=== PATIENT | female | born 1955 | race Caucasian/White ===

== ENCOUNTER → 2020-10-01 13:33 | Outpatient (BNVA) | payer OTHER, SELFPAY | PROVIDERS: PCP Internal Medicine Endocrinology, Diabetes & Metabolism; Referring Provider Internal Medicine Endocrinology, Diabetes & Metabolism; Visit Provider Hospitalist | DX: Z76.89 Persons encountering health services in other specified circumstances (principal) ==

== ENCOUNTER → 2021-07-22 13:52 | Outpatient (BNVA) | payer OTHER, SELFPAY | PROVIDERS: PCP Internal Medicine Endocrinology, Diabetes & Metabolism; Visit Provider Hospitalist ==

== ENCOUNTER 2022-06-23 12:40 | Outpatient (REF) | payer OTHER, SELFPAY ==
--- NOTE | 2022-06-23 17:23 | PFT_ITS ---
Forced vital capacity 57%, FEV1 35%, FEV1/FVC ratio is 47, ACI61-69 14%, MVV 38. Post bronchodilator therapy, there is a minimal improvement in FEV1 and [id number]. Total lung capacity 86%. Residual volume 114%. Diffusion capacity 32. CONCLUSION: Very severe obstructive airway disorder. Minimal response to bronchodilator therapy is noted. Clinical correlation recommended. MD RADHA Weaver/MODL / [id number]
== END 2022-06-23 12:41 | disposition home or self-care (01) ==
LOC: HO.RESP 12:40
PROVIDERS: PCP Internal Medicine Endocrinology, Diabetes & Metabolism; Visit Provider Hospitalist
DX: J44.9 Chronic obstructive pulmonary disease, unspecified (principal)
CPT/HCPCS: 94060; 94727; 94729

== ENCOUNTER 2023-08-21 08:53 | Outpatient (AMB) | payer OTHER, SELFPAY ==
--- NOTE | 2023-08-21 09:09 | MHC.OFFVIS ---
Intake Vital Signs 08/21/23 09:10 Height 5 ft Weight 203 lb BMI 39.6 Pulse 65 Pulse Source Pulse Oximeter Pulse Oximetry (%) 92 Oxygen Delivery Method Room Air Comment 2 Liters Oxygen([facility]) Intake Visit Reasons: copd Epoxy Specialist Required: No Allergies No Known Allergies Allergy (Verified 08/21/23 09:11) HPI HPI Comments History of Present Illness Details The patient is a 67-year-old woman with chronic respiratory failure due to COPD. She does have her portable oxygen concentrator that she uses with activity. This is been very effective beneficial. She did desaturate to 88% on RA with activity. Pox 94-95% on the oxygen supplementation 2 L. The patient will continue using the portable oxygen concentrator with activity. She continues to use her respiratory therapy with with good effect. Has not had to use any short-acting beta agonist or need for prednisone. She has not required any hospitalizations. She did have a CT scan of the chest February 2019 demonstrating numerous pulmonary nodules. Largest 7 mm. The patient is scheduled to undergo a repeat CT scan through the lung cancer screening program a [facility]. 04/09/2020 The patient has a telephone visit. Overall the patient is doing well. She is responding very well to the portable oxygen concentrator. This has been very effective beneficial for her. She has been more active and has better portability outside of her home. She she continue with his portable oxygen concentrator. She continues with respiratory medicine. We did talk about his CT scan of the chest demonstrating the 7 mm pulmonary nodule. She is scheduled for CT scan in April of 2020 and does being followed closely at the [facility] lung cancer screening program. Otherwise the patient has been doing well since we last spoke. She finally retired and she did get Cindy to her partner. 10/01/2020 the patient has a telephone visit. Overall she is doing well. Stay very active. She does use her oxygen which very helpful for her. She feels her batteries are not work or lasting as long as before. She will talk to her [employer] company about this. She continues with the current respiratory regimen. She does take part in the lung cancer screening program at [facility]. Her last CT scan was back in April 2020 and she was scheduled to have another CT scan in April 2021. Was the patient is without any other complaints. 07/22/2021 the patient is here for a pulmonary follow-up visit. Overall the patient has been doing well. She continues with a portable oxygen concentrator that she uses most of the time. She is able to take it off when she is resting Ambien room air. The patient continues use her respiratory therapy without any difficulties. In addition to that she did undergo a CT scan of the chest which we personally reviewed in the office. Her pulmonary nodules appear to be stable when compared to last year. However, appears to have some slight increase haziness over the right lower lobe base suggesting some degree of atelectasis. I did recommend the patient start pulmonary rehab it and to perform exercises to expand her lungs specially on the right. She is scheduled to undergo a repeat CT scan in a year's time which is correct. However, if she has any worsening respiratory symptoms or any other concerning symptoms we can always look at that area a little sooner. I did provide her with information for the pulmonary rehab online. 07/23/2022 the patient is here for a pulmonary follow-up visit. Overall the patient has been doing very well. She continues use her oxygen with her portable oxygen concentrator with activity with very good results. She does sleep with oxygen at nighttime. She has a planned trip to [place] this week and she is very excited. The patient has all her medicines. She is going to be very careful and protecting herself from getting sick with any type of virus while she is medication. In the meantime she did undergo pulmonary function studies which we personally reviewed. She does have severe COPD with also evidence of air trapping and a severe diffusion impairment. We did compare her PFTs from [facility] back in 2013 in 2019. It appears that her FEV1 actually improved slightly from 32% to 39% predicted also her diffusing capacity has not changed dramatically. Therefore the patient has been sustaining for the last 10-14 years without any significant worsening of her COPD. The patient is also participating in the lung cancer screening program. Her last CT scan was at [facility] back in June 2022. We did personally reviewed demonstrating small subcentimeter pulmonary nodules. She does have moderate emphysema and some coronary calcifications. 08/18/2022 this is a telehealth visit. The patient came back from [place] and developed COVID-19. She did call quickly after having symptoms and she did start Paxlovid. Now she has completed the course of the 5 days of the antiviral therapy. However, she has been noticing worsening cough productive in nature and shortness of breath. She has been fatigued. Denies any fevers or chills. The patient has been using her respiratory therapy which includes Anoro and also a rescue inhaler. In view of the significant chest congestion and wheezing the patient does need a nebulizer. Now that she has completed the course of packs lobe it we can go ahead and start her on some prednisone. She is already on doxycycline which I believe is a good antibiotic. 08/21/2023 The patient is here for pulmonary follow-up visit. Overall the patient has been doing well. She continues use her oxygen as prescribed. The patient also has been using her respiratory medications. She has not had any exacerbations since we last visit. She continues use her portable oxygen Concentrator with good effect. She had been participating in the lung cancer screening program at [facility]. The patient has plans to travel to the [facility] in the coming months. I did recommend she gets vaccinated for RSV flu and COVID before she travels. otherwise patient is without any other complaints. [facility] Medical History (Updated 08/18/22 @ 23:31 by Rick Orta MD) COVID-19 Atelectasis Pulmonary nodules Chronic respiratory failure COPD (chronic obstructive pulmonary disease) Family History (Updated 10/01/20 @ 21:01 by Rick Orta MD) Father No problems noted. Social History (Updated 08/21/23 @ 09:15 by Lizzette Flynn [place]) Patient Tobacco Use Status: Never used Tobacco Review of Systems Const Denies fatigue, Denies malaise and Denies night sweats ENT Denies change in voice, Denies lip swelling, Denies mouth pain, Reports nasal congestion, Reports nasal discharge, Reports sore throat and Denies tongue swelling Card Denies chest pain, Denies dyspnea and Reports dyspnea on exertion Resp Denies chest congestion, Denies cough, Denies dyspnea, Reports dyspnea on exertion and Denies wheezing GI Denies abdominal pain Musc Denies no additional complaints Neuro Denies Neuro-related abnormal movements Psych Denies no additional complaints Endo Denies fatigue Star/Lymph Denies easy bleeding and Denies lymphadenopathy Aller/Immun Denies lip swelling, Denies tongue swelling and Denies wheezing Physical Exam Vital Signs: Last Vital Signs Pulse 65 08/21/23 09:10 Pulse Ox 92 08/21/23 09:10 Oxygen Delivery Method Room Air 08/21/23 09:10 BMI result Body Mass Index 39.6 Const General: alert Neck Neck: Yes normal visual inspection, Yes full ROM and Yes no lymphadenopathy Chest Chest palpation & inspection: normal inspection of the chest Resp Effort & Inspection: normal respiratory effort and able to speak in complete sentences Auscultation: no rales, no rhonchi, no wheezes and diminished lung sounds Cardio Rate: regular rate Rhythm: regular rhythm Heart sounds: S1 normal heart sound present and S2 normal heart sound present GI Palpation (GI): Soft to palpation and nontender Auscultation: normal bowel sounds Skin General skin exam: no rashes or lesions noted Extrem General: Yes no clubbing, cyanosis or edema Assessment & Plan Assessment & Plan (1) COPD (chronic obstructive pulmonary disease): Code(s): J44.9 - Chronic obstructive pulmonary disease, unspecified Qualifiers: COPD type: COPD with acute exacerbation Qualified Code(s): J44.1 - Chronic obstructive pulmonary disease with (acute) exacerbation (2) Chronic respiratory failure: Code(s): J96.10 - Chronic respiratory failure, unspecified whether with hypoxia or hypercapnia (3) Pulmonary nodules: Code(s): R91.8 - Other nonspecific abnormal finding of lung field Plan continue oxygen with activity continue Anoro SOCORRO as needed Duoneb BID LDCT at [facility] F/U 1 year Medications: Changed From albuterol sulfate 90 mcg/actuation inhalation To albuterol sulfate 90 mcg/actuation 2 inhalations inhalation Q6H 90 days PRN 3 ea 3RF shortness of breath or wheezing From montelukast 10 mg PO DAILY To montelukast 10 mg PO DAILY 90 days 90 tabs 3RF Refilled Anoro Ellipta 62.5-25 mcg/actuation (umeclidinium-vilanterol) 1 inh inhalation DAILY 90 days 3 ea 3RF NS Coding Level of Care Code Est Pt Level 4 (06106) Diagnoses Chronic obstructive pulmonary disease with acute exacerbation J44.1 COPD type: COPD with acute exacerbation Chronic respiratory failure J96.10 Pulmonary nodules R91.8 Time Spent (min) 16
[2023-08-21 09:10] VITALS: PULSE 65; O2SAT 92; BMI 39.6
== END 2023-08-21 09:35 | disposition home or self-care (01) ==
PROVIDERS: PCP Internal Medicine Endocrinology, Diabetes & Metabolism; Visit Provider Hospitalist
DX: J44.1 Chronic obstructive pulmonary disease with (acute) exacerbation (principal); J96.10 Chronic respiratory failure, unspecified whether with hypoxia or hypercapnia; R91.8 Other nonspecific abnormal finding of lung field
CPT/HCPCS: 99214

== ENCOUNTER → 2023-08-21 08:53 | Outpatient (BNVA) | payer OTHER, SELFPAY | PROVIDERS: PCP Internal Medicine Endocrinology, Diabetes & Metabolism; Visit Provider Hospitalist ==

== ENCOUNTER 2024-06-22 09:36 | Outpatient (AMB) | payer OTHER, SELFPAY ==
--- NOTE | 2024-06-22 09:42 | MHC.OFFVIS ---
Vital Signs 06/22/24 09:44 Height 5 ft Weight 205 lb BMI 40.0 Pulse 67 Pulse Source Pulse Oximeter Pulse Oximetry (%) 95 Oxygen Delivery Method Room Air Comment 3 Liters Pulse([facility]) Intake Visit Reasons: COPD Allergies No Known Allergies Allergy (Verified 06/22/24 09:43) HPI Comments Details: The patient is [id number] woman with chronic respiratory failure due to COPD. She does have her portable oxygen concentrator that she uses with activity. This is been very effective beneficial. She did desaturate to 88% on RA with activity. Pox 94-95% on the oxygen supplementation 2 L. The patient will continue using the portable oxygen concentrator with activity. She continues to use her respiratory therapy with with good effect. Has not had to use any short-acting beta agonist or need for prednisone. She has not required any hospitalizations. She did have a CT scan of the chest February 2019 demonstrating numerous pulmonary nodules. Largest 7 mm. The patient is scheduled to undergo a repeat CT scan through the lung cancer screening program a [facility]. 04/09/2020 The patient has a telephone visit. Overall the patient is doing well. She is responding very well to the portable oxygen concentrator. This has been very effective beneficial for her. She has been more active and has better portability outside of her home. She she continue with his portable oxygen concentrator. She continues with respiratory medicine. We did talk about his CT scan of the chest demonstrating the 7 mm pulmonary nodule. She is scheduled for CT scan in April of 2020 and does being followed closely at the [facility] lung cancer screening program. Otherwise the patient has been doing well since we last spoke. She finally retired and she did get Cindy to her partner. 10/01/2020 the patient has a telephone visit. Overall she is doing well. Stay very active. She does use her oxygen which very helpful for her. She feels her batteries are not work or lasting as long as before. She will talk to her [employer] company about this. She continues with the current respiratory regimen. She does take part in the lung cancer screening program at [facility]. Her last CT scan was back in April 2020 and she was scheduled to have another CT scan in April 2021. Was the patient is without any other complaints. 07/22/2021 the patient is here for a pulmonary follow-up visit. Overall the patient has been doing well. She continues with a portable oxygen concentrator that she uses most of the time. She is able to take it off when she is resting Ambien room air. The patient continues use her respiratory therapy without any difficulties. In addition to that she did undergo a CT scan of the chest which we personally reviewed in the office. Her pulmonary nodules appear to be stable when compared to last year. However, appears to have some slight increase haziness over the right lower lobe base suggesting some degree of atelectasis. I did recommend the patient start pulmonary rehab it and to perform exercises to expand her lungs specially on the right. She is scheduled to undergo a repeat CT scan in a year's time which is correct. However, if she has any worsening respiratory symptoms or any other concerning symptoms we can always look at that area a little sooner. I did provide her with information for the pulmonary rehab online. 07/23/2022 the patient is here for a pulmonary follow-up visit. Overall the patient has been doing very well. She continues use her oxygen with her portable oxygen concentrator with activity with very good results. She does sleep with oxygen at nighttime. She has a planned trip to [place] this week and she is very excited. The patient has all her medicines. She is going to be very careful and protecting herself from getting sick with any type of virus while she is medication. In the meantime she did undergo pulmonary function studies which we personally reviewed. She does have severe COPD with also evidence of air trapping and a severe diffusion impairment. We did compare her PFTs from [facility] back in 2013 in 2019. It appears that her FEV1 actually improved slightly from 32% to 39% predicted also her diffusing capacity has not changed dramatically. Therefore the patient has been sustaining for the last 10-14 years without any significant worsening of her COPD. The patient is also participating in the lung cancer screening program. Her last CT scan was at [facility] back in June 2022. We did personally reviewed demonstrating small subcentimeter pulmonary nodules. She does have moderate emphysema and some coronary calcifications. 08/18/2022 this is a telehealth visit. The patient came back from [place] and developed COVID-19. She did call quickly after having symptoms and she did start Paxlovid. Now she has completed the course of the 5 days of the antiviral therapy. However, she has been noticing worsening cough productive in nature and shortness of breath. She has been fatigued. Denies any fevers or chills. The patient has been using her respiratory therapy which includes Anoro and also a rescue inhaler. In view of the significant chest congestion and wheezing the patient does need a nebulizer. Now that she has completed the course of packs lobe it we can go ahead and start her on some prednisone. She is already on doxycycline which I believe is a good antibiotic. 08/21/2023 The patient is here for pulmonary follow-up visit. Overall the patient has been doing well. She continues use her oxygen as prescribed. The patient also has been using her respiratory medications. She has not had any exacerbations since we last visit. She continues use her portable oxygen Concentrator with good effect. She had been participating in the lung cancer screening program at [facility]. The patient has plans to travel to the [facility] in the coming months. I did recommend she gets vaccinated for RSV flu and COVID before she travels. otherwise patient is without any other complaints. 06/22/2024 the patient is here for a pulmonary follow-up visit. She is overall doing well. She continues use the oxygen as prescribed. She also is using her inhalers as prescribed. She has not had any recent flare-ups. She has been working extra hard because she is taking care of her significant other. The patient did have a chest x-ray without any acute disease. We did evaluated. She did have a CT scan back in 2021 as part of the lung cancer screening program at [facility]. She has a 7 mm pulmonary nodule along with other nodules. We are going back to down to 2017 demonstrating the stability the 7 mm pulmonary nodule in the other nodules. Therefore no additional CT scans are warranted serially. If he develops any worsening symptoms I think it reasonable to repeat the CT scan. But at this point will continue to monitor her with x-rays and clinically. Patient will return in 1 year. She is going to get fully vaccinated in the fall and we will see her then. If she has any issues prior to that she will call for an earlier assessment. [facility] Medical History (Updated 06/22/24 @ 09:53 by Rick Orta MD) COVID-19 Atelectasis Pulmonary nodules Chronic respiratory failure COPD (chronic obstructive pulmonary disease) Family History (Updated 10/01/20 @ 21:01 by Rick Orta MD) Father No problems noted. Social History (Updated 08/21/23 @ 09:15 by DARCI Escobar) Patient Tobacco Use Status: Never used Tobacco Review of Systems Const Denies fatigue, Denies malaise and Denies night sweats ENT Denies change in voice, Denies lip swelling, Denies mouth pain, Denies sore throat and Denies tongue swelling Card Denies chest pain, Denies dyspnea and Reports dyspnea on exertion Resp Denies chest congestion, Denies cough, Denies dyspnea, Reports dyspnea on exertion and Denies wheezing GI Denies abdominal pain Musc Denies no additional complaints Neuro Denies Neuro-related abnormal movements Psych Denies no additional complaints Endo Denies fatigue Star/Lymph Denies easy bleeding and Denies lymphadenopathy Aller/Immun Denies lip swelling, Denies tongue swelling and Denies wheezing Physical Exam Vital Signs: Last Vital Signs Pulse 67 06/22/24 09:44 Pulse Ox 95 06/22/24 09:44 Oxygen Delivery Method Room Air 06/22/24 09:44 BMI result Body Mass Index 40.0 Const General: alert HEENT Head: Yes normocephalic Neck Neck: Yes normal visual inspection, Yes full ROM and Yes no lymphadenopathy Chest Chest palpation & inspection: normal inspection of the chest Resp Effort & Inspection: normal respiratory effort and able to speak in complete sentences Auscultation: no rales, no rhonchi, no wheezes and diminished lung sounds Cardio Rate: regular rate Rhythm: regular rhythm Heart sounds: S1 normal heart sound present and S2 normal heart sound present GI Palpation (GI): Soft to palpation and nontender Auscultation: normal bowel sounds Skin General skin exam: no rashes or lesions noted Extrem General: Yes no clubbing, cyanosis or edema Assessment & Plan Assessment & Plan (1) COPD (chronic obstructive pulmonary disease): Code(s): J44.9 - Chronic obstructive pulmonary disease, unspecified Category: Medical Qualifiers: COPD type: COPD with acute exacerbation Qualified Code(s): J44.1 - Chronic obstructive pulmonary disease with (acute) exacerbation (2) Chronic respiratory failure: Code(s): J96.10 - Chronic respiratory failure, unspecified whether with hypoxia or hypercapnia Category: Medical Qualifiers: Respiratory failure complication: hypoxia Qualified Code(s): J96.11 - Chronic respiratory failure with hypoxia (3) Pulmonary nodules: Code(s): R91.8 - Other nonspecific abnormal finding of lung field Category: Medical Plan continue oxygen with activity continue Anoro SOCORRO as needed Duoneb BID LDCT at [facility] completed, 7mm nodule stable for >7 years F/U 1 year Coding Level of Care Code Est Pt Level 4 (27894) Diagnoses Chronic obstructive pulmonary disease with acute exacerbation J44.1 COPD type: COPD with acute exacerbation Chronic respiratory failure with hypoxia J96.11 Respiratory failure complication: hypoxia Pulmonary nodules R91.8 Time Spent (min) 17
[2024-06-22 09:44] VITALS: PULSE 67; O2SAT 95; BMI 40.0
== END 2024-06-22 10:41 | disposition home or self-care (01) ==
PROVIDERS: PCP Internal Medicine Endocrinology, Diabetes & Metabolism; Visit Provider Hospitalist
DX: J44.1 Chronic obstructive pulmonary disease with (acute) exacerbation (principal); J96.11 Chronic respiratory failure with hypoxia; R91.8 Other nonspecific abnormal finding of lung field
CPT/HCPCS: 99214

== ENCOUNTER → 2024-06-22 09:36 | Outpatient (BNVA) | payer OTHER, SELFPAY | PROVIDERS: PCP Internal Medicine Endocrinology, Diabetes & Metabolism; Visit Provider Hospitalist ==

== ENCOUNTER 2025-08-21 13:15 | Outpatient (AMB) | payer OTHER, SELFPAY ==
[2025-08-21 13:16] VITALS: BP 148/74; PULSE 69; O2SAT 96; BMI 40.0
--- NOTE | 2025-08-21 13:16 | A.OFFVIS_ITS ---
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 She does have her portable oxygen concentrator that she uses with activity. This is been very effective beneficial. She did desaturate to 88% on RA with activity. Pox 94-95% on the oxygen supplementation 2 L. The patient will continue using the portable oxygen concentrator with activity. She continues to use her respiratory therapy with with good effect. Has not had to use any short- acting beta agonist or need for prednisone. She has not required any hospitalizations. She did have a CT scan of the chest February 2019 demonstrating numerous pulmonary nodules. Largest 7 mm. The patient is scheduled to undergo a repeat CT scan through the lung cancer screening program a [facility]. 04/09/2020 The patient has a telephone visit. Overall the patient is doing well. She is responding very well to the portable oxygen concentrator. This has been very effective beneficial for her. She has been more active and has better portability outside of her home. She she continue with his portable oxygen concentrator. She continues with respiratory medicine. We did talk about his CT scan of the chest demonstrating the 7 mm pulmonary nodule. She is scheduled for CT scan in April of 2020 and does being followed closely at the [facility] lung cancer screening program. Otherwise the patient has been doing well since we last spoke. She finally retired and she did get Cindy to her partner. 10/01/2020 the patient has a telephone visit. Overall she is doing well. Stay very active. She does use her oxygen which very helpful for her. She feels her batteries are not work or lasting as long as before. She will talk to her [employer] about this. She continues with the current respiratory regimen. She does take part in the lung cancer screening program at [facility]. Her last CT scan was back in April 2020 and she was scheduled to have another CT scan in April 2021. Was the patient is without any other complaints. 07/22/2021 the patient is here for a pulmonary follow-up visit. Overall the patient has been doing well. She continues with a portable oxygen concentrator that she uses most of the time. She is able to take it off when she is resting Ambien room air. The patient continues use her respiratory therapy without any difficulties. In addition to that she did undergo a CT scan of the chest which we personally reviewed in the office. Her pulmonary nodules appear to be stable when compared to last year. However, appears to have some slight increase haziness over the right lower lobe base suggesting some degree of atelectasis. I did recommend the patient start pulmonary rehab it and to perform exercises to expand her lungs specially on the right. She is scheduled to undergo a repeat CT scan in a year's time which is correct. However, if she has any worsening respiratory symptoms or any other concerning symptoms we can always look at that area a little sooner. I did provide her with information for the pulmonary rehab online. 07/23/2022 the patient is here for a pulmonary follow-up visit. Overall the patient has been doing very well. She continues use her oxygen with her portable oxygen concentrator with activity with very good results. She does sleep with oxygen at nighttime. She has a planned trip to [place] this week and she is very excited. The patient has all her medicines. She is going to be very careful and protecting herself from getting sick with any type of virus while she is medication. In the meantime she did undergo pulmonary function studies which we personally reviewed. She does have severe COPD with also evidence of air trapping and a severe diffusion impairment. We did compare her PFTs from [facility] back in 2013 in 2019. It appears that her FEV1 actually improved slightly from 32% to 39% predicted also her diffusing capacity has not changed dramatically. Therefore the patient has been sustaining for the last 10-14 years without any significant worsening of her COPD. The patient is also participating in the lung cancer screening program. Her last CT scan was at [facility] back in June 2022. We did personally reviewed demonstrating small subcentimeter pulmonary nodules. She does have moderate emphysema and some coronary calcifications. 08/18/2022 this is a telehealth visit. The patient came back from [place] and developed COVID-19. She did call quickly after having symptoms and she did start Paxlovid. Now she has completed the course of the 5 days of the antiviral therapy. However, she has been noticing worsening cough productive in nature and shortness of breath. She has been fatigued. Denies any fevers or chills. The patient has been using her respiratory therapy which includes Anoro and also a rescue inhaler. In view of the significant chest congestion and wheezing the patient does need a nebulizer. Now that she has completed the course of packs lobe it we can go ahead and start her on some prednisone. She is already on doxycycline which I believe is a good antibiotic. 08/21/2023 The patient is here for pulmonary follow-up visit. Overall the patient has been doing well. She continues use her oxygen as prescribed. The patient also has been using her respiratory medications. She has not had any exacerbations since we last visit. She continues use her portable oxygen Concentrator with good effect. She had been participating in the lung cancer screening program at [facility]. The patient has plans to travel to the [facility] in the coming months. I did recommend she gets vaccinated for RSV flu and COVID before she travels. otherwise patient is without any other complaints. 06/22/2024 the patient is here for a pulmonary follow-up visit. She is overall doing well. She continues use the oxygen as prescribed. She also is using her inhalers as prescribed. She has not had any recent flare-ups. She has been working extra hard because she is taking care of her significant other. The patient did have a chest x-ray without any acute disease. We did evaluated. She did have a CT scan back in 2021 as part of the lung cancer screening program at [facility]. She has a 7 mm pulmonary nodule along with other nodules. We are going back to down to 2017 demonstrating the stability the 7 mm pulmonary nodule in the other nodules. Therefore no additional CT scans are warranted serially. If he develops any worsening symptoms I think it reasonable to repeat the CT scan. But at this point will continue to monitor her with x- rays and clinically. Patient will return in 1 year. She is going to get fully vaccinated in the fall and we will see her then. If she has any issues prior to that she will call for an earlier assessment. 08/21/2025 the patient is here for pulmonary follow-up visit. Overall the patient has been doing okay although she does complain of increasing dyspnea on exertion. Moderate severity. She does use the oxygen all times. She has a portable oxygen concentrator that is very affecting beneficial. She usually uses it a 3 L pulse. We did go for brief walking oximetry today and adjust at baseline same down on room air she is saturating around 90%. She did start the 3 L pulse with activity and she was able to maintain a pulse ox about 90% throughout the ambulation. But that was only about 50 m so we walk. We did talk about the importance of deep breathing exercises. She is going to work on that. We did also talk about optimizing her respiratory therapy. She is on Anoro. She does not want to go inhaled steroids because it concerns about her diabetes and going steroids into her body. She rather not. Therefore will hold off on inhaled cortical steroids. But she will be a great candidate for PD for inhibitor. Will go and start her on a small dose of Daliresp to decrease her brought chronic bronchitis symptoms and decrease her prednisone and steroid knee. Will also have the patient get a chest x-ray to to further address her dyspnea and hypoxia. The patient should return in 3-4 months. [facility] Medical History (Updated 06/22/24 @ 09:53 by Rick Orta MD) COVID-19 Atelectasis Pulmonary nodules Chronic respiratory failure COPD (chronic obstructive pulmonary disease) Family History (Updated 10/01/20 @ 21:01 by Rick Orta MD) Father No problems noted. Social History Patient Tobacco Use Status: Never used Tobacco Review of Systems Const Denies fatigue, Denies malaise and Denies night sweats ENT Denies change in voice, Denies lip swelling, Denies mouth pain, Denies sore throat and Denies tongue swelling Card Denies chest pain, Denies dyspnea and Reports dyspnea on exertion Resp Denies chest congestion, Denies cough, Denies dyspnea, Reports dyspnea on exertion and Denies wheezing GI Denies abdominal pain Musc Denies no additional complaints Neuro Denies Neuro-related abnormal movements Psych Denies no additional complaints Endo Denies fatigue Star/Lymph Denies easy bleeding and Denies lymphadenopathy Aller/Immun Denies lip swelling, Denies tongue swelling and Denies wheezing Physical Exam Vital Signs: Last Vital Signs Pulse 69 08/21/25 13:16 BP 148/74 H 08/21/25 13:16 Pulse Ox 96 08/21/25 13:16 Oxygen Delivery Method Nasal Cannula 08/21/25 13:16 Oxygen Flow Rate 3 08/21/25 13:16 BMI result Body Mass Index 40.0 Const General: alert HEENT Head: Yes normocephalic Neck Neck: Yes normal visual inspection, Yes full ROM and Yes no lymphadenopathy Chest Chest palpation & inspection: normal inspection of the chest Resp Effort & Inspection: normal respiratory effort and able to speak in complete sentences Auscultation: no rales, no rhonchi, no wheezes and diminished lung sounds Cardio Rate: regular rate Rhythm: regular rhythm Heart sounds: S1 normal heart sound present and S2 normal heart sound present GI Palpation (GI): Soft to palpation and nontender Auscultation: normal bowel sounds Skin General skin exam: no rashes or lesions noted Extrem General: Yes no clubbing, cyanosis or edema Assessment & Plan Assessment & Plan (1) COPD (chronic obstructive pulmonary disease): Code(s): J44.9 - Chronic obstructive pulmonary disease, unspecified Category: Medical Qualifiers: COPD type: COPD with acute exacerbation Qualified Code(s): J44.1 - Chronic obstructive pulmonary disease with (acute) exacerbation (2) Chronic respiratory failure: Code(s): J96.10 - Chronic respiratory failure, unspecified whether with hypoxia or hypercapnia Category: Medical Qualifiers: Respiratory failure complication: hypoxia Qualified Code(s): J96.11 - Chronic respiratory failure with hypoxia (3) Pulmonary nodules: Code(s): R91.8 - Other nonspecific abnormal finding of lung field Category: Medical Plan continue oxygen with activity continue Anoro SOCORRO as needed Duoneb BID Start Daliresp 250mcg --> 500mcg CXR LDCT at [facility] completed, 7mm nodule stable for >7 years F/U 4-6 months Orders: Orders XR chest 2V Today J44.1 - Chronic obstructive pulmonary disease with (acute) exacerbation Medications: New roflumilast (Daliresp) 250 mcg PO DAILY 30 tabs 11RF 30 days J44.9 - Chronic obstructive pulmonary disease, unspecified Refilled montelukast 10 mg PO DAILY 90 tabs 3RF 90 days levalbuterol tartrate 45 mcg/actuation (Xopenex HFA) 2 puffs inhalation Q6H PRN 3 ea 3RF shortness of breath or wheezing 90 days J45.909 - Unspecified asthma, uncomplicated Anoro Ellipta 62.5-25 mcg/actuation (umeclidinium-vilanterol) 1 inh inhalation DAILY 3 ea 3RF 90 days NS Coding Level of Care Code Est Pt Level 4 (35381) Complex EM visit Add On G2211 Diagnoses Chronic obstructive pulmonary disease with acute exacerbation J44.1 COPD type: COPD with acute exacerbation Chronic respiratory failure with hypoxia J96.11 Respiratory failure complication: hypoxia Pulmonary nodules R91.8 Time Spent (min) 17
== END 2025-08-21 14:03 | disposition home or self-care (01) ==
LOC: HO.HPS 13:15
PROVIDERS: PCP Internal Medicine Endocrinology, Diabetes & Metabolism; Visit Provider Hospitalist
DX: J44.1 Chronic obstructive pulmonary disease with (acute) exacerbation (principal); J96.11 Chronic respiratory failure with hypoxia; R91.8 Other nonspecific abnormal finding of lung field
CPT/HCPCS: 99214; G2211

== ENCOUNTER 2025-11-13 13:53 | Outpatient (AMB) | payer OTHER, SELFPAY ==
[2025-11-13 13:56] VITALS: BP 138/58; PULSE 71; O2SAT 94; BMI 39.2
--- NOTE | 2025-11-13 13:56 | MHC.OFFVIS ---
Vital Signs 11/13/25 13:56 Height 5 ft Weight 200 lb 9.93 oz BMI 39.2 BP 138/58 L Blood Pressure Location Rt brachial Position Sitting Pulse 71 Pulse Source Pulse Oximeter Pulse Oximetry (%) 94 Oxygen Delivery Method Nasal Cannula Oxygen Flow Rate 3 Intake Visit Reasons: COPD Sanipractic Physician Required: No Corporation Lawyer: Corporation Lawyer offered & declined Accompanied by: Self / Same As Patient Allergies No Known Allergies Allergy (Verified 11/13/25 14:01) HPI Comments Details: The patient is a 70-year-old woman with chronic respiratory failure due to COPD. She does have her portable oxygen concentrator that she uses with activity. This is been very effective beneficial. She did desaturate to 88% on RA with activity. Pox 94-95% on the oxygen supplementation 2 L. The patient will continue using the portable oxygen concentrator with activity. She continues to use her respiratory therapy with with good effect. Has not had to use any short-acting beta agonist or need for prednisone. She has not required any hospitalizations. She did have a CT scan of the chest February 2019 demonstrating numerous pulmonary nodules. Largest 7 mm. The patient is scheduled to undergo a repeat CT scan through the lung cancer screening program a [facility]. 04/09/2020 The patient has a telephone visit. Overall the patient is doing well. She is responding very well to the portable oxygen concentrator. This has been very effective beneficial for her. She has been more active and has better portability outside of her home. She she continue with his portable oxygen concentrator. She continues with respiratory medicine. We did talk about his CT scan of the chest demonstrating the 7 mm pulmonary nodule. She is scheduled for CT scan in April of 2020 and does being followed closely at the [facility] lung cancer screening program. Otherwise the patient has been doing well since we last spoke. She finally retired and she did get Cindy to her partner. 10/01/2020 the patient has a telephone visit. Overall she is doing well. Stay very active. She does use her oxygen which very helpful for her. She feels her batteries are not work or lasting as long as before. She will talk to her [employer] about this. She continues with the current respiratory regimen. She does take part in the lung cancer screening program at [facility]. Her last CT scan was back in April 2020 and she was scheduled to have another CT scan in April 2021. Was the patient is without any other complaints. 07/22/2021 the patient is here for a pulmonary follow-up visit. Overall the patient has been doing well. She continues with a portable oxygen concentrator that she uses most of the time. She is able to take it off when she is resting Ambien room air. The patient continues use her respiratory therapy without any difficulties. In addition to that she did undergo a CT scan of the chest which we personally reviewed in the office. Her pulmonary nodules appear to be stable when compared to last year. However, appears to have some slight increase haziness over the right lower lobe base suggesting some degree of atelectasis. I did recommend the patient start pulmonary rehab it and to perform exercises to expand her lungs specially on the right. She is scheduled to undergo a repeat CT scan in a year's time which is correct. However, if she has any worsening respiratory symptoms or any other concerning symptoms we can always look at that area a little sooner. I did provide her with information for the pulmonary rehab online. 07/23/2022 the patient is here for a pulmonary follow-up visit. Overall the patient has been doing very well. She continues use her oxygen with her portable oxygen concentrator with activity with very good results. She does sleep with oxygen at nighttime. She has a planned trip to [place] this week and she is very excited. The patient has all her medicines. She is going to be very careful and protecting herself from getting sick with any type of virus while she is medication. In the meantime she did undergo pulmonary function studies which we personally reviewed. She does have severe COPD with also evidence of air trapping and a severe diffusion impairment. We did compare her PFTs from [facility] back in 2013 in 2019. It appears that her FEV1 actually improved slightly from 32% to 39% predicted also her diffusing capacity has not changed dramatically. Therefore the patient has been sustaining for the last 10-14 years without any significant worsening of her COPD. The patient is also participating in the lung cancer screening program. Her last CT scan was at [facility] back in June 2022. We did personally reviewed demonstrating small subcentimeter pulmonary nodules. She does have moderate emphysema and some coronary calcifications. 08/18/2022 this is a telehealth visit. The patient came back from [place] and developed COVID-19. She did call quickly after having symptoms and she did start Paxlovid. Now she has completed the course of the 5 days of the antiviral therapy. However, she has been noticing worsening cough productive in nature and shortness of breath. She has been fatigued. Denies any fevers or chills. The patient has been using her respiratory therapy which includes Anoro and also a rescue inhaler. In view of the significant chest congestion and wheezing the patient does need a nebulizer. Now that she has completed the course of packs lobe it we can go ahead and start her on some prednisone. She is already on doxycycline which I believe is a good antibiotic. 08/21/2023 The patient is here for pulmonary follow-up visit. Overall the patient has been doing well. She continues use her oxygen as prescribed. The patient also has been using her respiratory medications. She has not had any exacerbations since we last visit. She continues use her portable oxygen Concentrator with good effect. She had been participating in the lung cancer screening program at [facility]. The patient has plans to travel to the [facility] in the coming months. I did recommend she gets vaccinated for RSV flu and COVID before she travels. otherwise patient is without any other complaints. 06/22/2024 the patient is here for a pulmonary follow-up visit. She is overall doing well. She continues use the oxygen as prescribed. She also is using her inhalers as prescribed. She has not had any recent flare-ups. She has been working extra hard because she is taking care of her significant other. The patient did have a chest x-ray without any acute disease. We did evaluated. She did have a CT scan back in 2021 as part of the lung cancer screening program at [facility]. She has a 7 mm pulmonary nodule along with other nodules. We are going back to down to 2017 demonstrating the stability the 7 mm pulmonary nodule in the other nodules. Therefore no additional CT scans are warranted serially. If he develops any worsening symptoms I think it reasonable to repeat the CT scan. But at this point will continue to monitor her with x-rays and clinically. Patient will return in 1 year. She is going to get fully vaccinated in the fall and we will see her then. If she has any issues prior to that she will call for an earlier assessment. 08/21/2025 the patient is here for pulmonary follow-up visit. Overall the patient has been doing okay although she does complain of increasing dyspnea on exertion. Moderate severity. She does use the oxygen all times. She has a portable oxygen concentrator that is very affecting beneficial. She usually uses it a 3 L pulse. We did go for brief walking oximetry today and adjust at baseline same down on room air she is saturating around 90%. She did start the 3 L pulse with activity and she was able to maintain a pulse ox about 90% throughout the ambulation. But that was only about 50 m so we walk. We did talk about the importance of deep breathing exercises. She is going to work on that. We did also talk about optimizing her respiratory therapy. She is on Anoro. She does not want to go inhaled steroids because it concerns about her diabetes and going steroids into her body. She rather not. Therefore will hold off on inhaled cortical steroids. But she will be a great candidate for PD for inhibitor. Will go and start her on a small dose of Daliresp to decrease her brought chronic bronchitis symptoms and decrease her prednisone and steroid knee. Will also have the patient get a chest x-ray to to further address her dyspnea and hypoxia. The patient should return in 3-4 months. 11/13/2025 the patient is here for pulmonary follow-up visit. The patient overall has been doing well. She continues her respiratory therapy as prescribed. She did tolerate the Daliresp 250 mcg dose. Will go ahead increase it to 500 mcg. She had been dealing with the anemia. She has been concerned because she has been having to take iron and then she stopped the iron because of black stools and if there stopping the iron she still continued to be black. Therefore she is scheduled to have an EGD and colonoscopy to assess the findings. She is also wondering about the pulmonary nodules. The last time she had a CT scan was back in 2022 and she had multiple pulmonary nodules largest 1 is 7 mm in size. Based on her ongoing symptoms and not feeling well is on a reasonable to re-evaluate the pulmonary nodules again to make sure that not growing. The patient is high risk. She continues use the oxygen with good effect. Will continue her current respiratory regimen. She is going to try the higher dose roflumilast hopefully this is something she can not tolerate and helps her overall respiratory status. [facility] Medical History (Updated 11/13/25 @ 14:18 by Rick Otra MD) COVID-19 Atelectasis Pulmonary nodules Chronic respiratory failure COPD (chronic obstructive pulmonary disease) Family History (Updated 10/01/20 @ 21:01 by Rick Orta MD) Father No problems noted. Social History Patient Tobacco Use Status: Never used Tobacco Review of Systems Const Denies fatigue, Denies malaise and Denies night sweats ENT Denies change in voice, Denies lip swelling, Denies mouth pain, Denies sore throat and Denies tongue swelling Card Denies chest pain, Denies dyspnea and Reports dyspnea on exertion Resp Denies chest congestion, Denies cough, Denies dyspnea, Reports dyspnea on exertion and Denies wheezing GI Denies abdominal pain and Denies hematochezia Musc Denies no additional complaints Neuro Denies Neuro-related abnormal movements Psych Denies no additional complaints Endo Denies fatigue Star/Lymph Denies easy bleeding and Denies lymphadenopathy Aller/Immun Denies lip swelling, Denies tongue swelling and Denies wheezing Physical Exam Vital Signs: Last Vital Signs Pulse 71 11/13/25 13:56 BP 138/58 L 11/13/25 13:56 Pulse Ox 94 11/13/25 13:56 Oxygen Delivery Method Nasal Cannula 11/13/25 13:56 Oxygen Flow Rate 3 11/13/25 13:56 BMI result Body Mass Index 39.2 Const General: alert HEENT Head: Yes normocephalic Neck Neck: Yes normal visual inspection, Yes full ROM and Yes no lymphadenopathy Chest Chest palpation & inspection: normal inspection of the chest Resp Effort & Inspection: normal respiratory effort and able to speak in complete sentences Auscultation: no rales, no rhonchi, no wheezes and diminished lung sounds Cardio Rate: regular rate Rhythm: regular rhythm Heart sounds: S1 normal heart sound present and S2 normal heart sound present GI Palpation (GI): Soft to palpation and nontender Auscultation: normal bowel sounds Skin General skin exam: no rashes or lesions noted Extrem General: Yes no clubbing, cyanosis or edema Assessment & Plan Assessment & Plan (1) COPD (chronic obstructive pulmonary disease): Code(s): J44.9 - Chronic obstructive pulmonary disease, unspecified Category: Medical Qualifiers: COPD type: COPD with acute exacerbation Qualified Code(s): J44.1 - Chronic obstructive pulmonary disease with (acute) exacerbation (2) Chronic respiratory failure: Code(s): J96.10 - Chronic respiratory failure, unspecified whether with hypoxia or hypercapnia Category: Medical Qualifiers: Respiratory failure complication: hypoxia Qualified Code(s): J96.11 - Chronic respiratory failure with hypoxia (3) Pulmonary nodules: Code(s): R91.8 - Other nonspecific abnormal finding of lung field Category: Medical (4) Pre-op chest exam: Code(s): Z01.811 - Encounter for preprocedural respiratory examination Category: Medical Plan Proceed with anesthesia and EGD/colonoscopy from a pulmonary standpoint continue oxygen with activity continue Anoro SOCORRO as needed Duoneb BID increase Daliresp 500mcg CT chest in 4 months F/U 4-6 months Orders: Orders CT chest wo IV con 4 Months R91.8 - Other nonspecific abnormal finding of lung field Medications: New roflumilast (Daliresp) 500 mcg PO DAILY 90 tabs 3RF 90 days Refilled montelukast 10 mg PO DAILY 90 tabs 3RF 90 days Anoro Ellipta 62.5-25 mcg/actuation (umeclidinium-vilanterol) 1 inh inhalation DAILY 3 ea 3RF 90 days NS levalbuterol tartrate 45 mcg/actuation (Xopenex HFA) 2 puffs inhalation Q6H PRN 3 ea 3RF shortness of breath or wheezing 90 days J45.909 - Unspecified asthma, uncomplicated Discontinued roflumilast (Daliresp) Discontinued Reason: Doctor's Order 250 mcg PO DAILY 30 days 30 tabs 11RF J44.9 - Chronic obstructive pulmonary disease, unspecified Coding Level of Care Code Est Pt Level 4 (11130) Diagnoses Chronic obstructive pulmonary disease with acute exacerbation J44.1 COPD type: COPD with acute exacerbation Chronic respiratory failure with hypoxia J96.11 Respiratory failure complication: hypoxia Pulmonary nodules R91.8 Pre-op chest exam Z01.811 Time Spent (min) 17
--- OUTSIDE RECORDS SUMMARY | 2025-11-13 17:24 | XMS_ITS | Data Portability ---
Author Organization [place] - [facility], Allergy Address [address] [place] [id number] Care Team Providers Care Laboratory Helper Name Role Phone YINKA HARRIS Primary Care Provider Assessment Encounter Date Assessment Date Assessment LastModified by Organization Details LastModified Time 12/19/2024 12/19/2024 Patient with nasal bleeding due to the prongs of her nasal cannula. Recommend switching to a nasal mask, and humidifying the chamber at least on her home device if not on the portable unit. Recommend increased use of saline spray and saline gel. Avoid digital trauma. Cautioned against use of petroleum products in the nose. Patient to return to the office if she is still having bleeding after a few weeks of switching mask styles. [email or web address] Not available 12/19/2024 13:33:39 Plan of Treatment Reminders Order Date Submit Date Provider Last Modified By Organization Details Last Modified Time Details Appointments None record ed. Lab None record ed. Referral None record ed. Procedures None record ed. Surgeries None record ed. Imaging None record ed. Medication Orders None record ed. Patient TargetsNo targets recorded. Patient InstructionsNo instructions recorded. Reason for Referral None Reported. Problems Name Problem SNOMED Code Status Onset Date Resolution Date Notes Provider Name and Address Organization Details Recorded Time Anterior epistaxis 872139384 Active 025 Nitza blanchard [place] [facility] 5 13:25:19 Nasal congestion 32531957 Active 025 Nitza blanchard [facility] 13:33:10 Problem Notes None recorded. Medical Equipment None Reported. Medications Name Sig Start Date Stop Date Status Note LastModified by Organization Details LastModified Time atorvastati n 80 mg tablet TAKE 1 TABLET DAILY DIRECTED active Not Available Not Available No t Available doxycycline hyclate 100 mg capsule TAKE 1 CAPSULE BY MOUTH TWICE A DAY FOR 10 DAYS 11/22 completed Not Available Not Available Not Available prednisone 20 mg tablet TAKE 2 TABLETS BY MOUTH DAILY FOR 5 DAYS THEN 1 TABLET BY MOUTH DAILY FOR 5 DAYS 11/22 completed Not Available Not Available Not Available clopidogrel 75 mg tablet TAKE 1 TABLET DAILY DIRECTED active Not Available Not Available No t Available bupropion HCl SR 100 mg tablet,12 hr sustained-r elease TAKE 1 TABLET 2 TIMES DAILYAS DIRECTED active Not Available Not Available No t Available metoprolol tartrate 50 mg tablet TAKE 1 TABLET TWICE A DAY DIRECTED active Not Available Not Available No t Available montelukast 10 mg tablet TAKE 1 TABLET DAILY active Not Available Not Available No t Available albuterol sulfate HFA 90 mcg/actuati on aerosol inhaler 11/22 completed Not Available Not Available Not Available metformin ER 500 mg tablet,exte nded release 24 hr TAKE 2 TABLETS EVERY NIGHT AT BEDTIME active Not Available Not Available No t Available Adult Aspirin EC Low Strength 81 mg tablet,elisabeth yed release 2005 active Not Available Not Available Not Avai lable Vitamin D3 25 mcg (1,000 unit) capsule 25 microgram s every day by oral route. 2000 active Not Available Not Available Not Avai lable iron 325 mg (65 mg iron) tablet 65 mg 3 times a week by oral route. 2021 active Not Available Not Available Not Avai lable Tylenol PM Extra Strength 25 mg-500 mg tablet 2 tablets every day by oral route. 2006 active Not Available Not Available Not Avai lable levalbutero l HFA 45 mcg/actuati on aerosol inhaler USE 2 INHALATIO NS ORALLY EVERY 6 HOURS NEEDED FORSHORTN ESS OF BREATH OR WHEEZING FOR 90 DAYS active Not Available Not Available No t Available Anoro Ellipta 62.5 mcg-25 mcg/actuati on powder for inhalation USE 1 INHALATIO N ORALLY DAILY active Not Available Not Available No t Available Paxlovid 300 mg (150 mg x 2)-100 mg tablets in a dose pack TAKE 3 TABLETS BY MOUTH TWICE A DAY FOR 5 DAYS DIRECTED 12/31 /2023 completed Not Available Not Available Not Available CoQmax Ubiquinol 200 mg capsule 200 mg every day by oral route. 2023 active Not Available Not Available Not Avai lable Vitals Date Recorded Body height Body mass index (BMI) Body weight Provider Name and Address Organization Details Last Updated DateTime 12/19/2024 157.48 cm 43 kg/m2 162471.21 g Hiwot Carbajal [place] - [facility] 12/19/2024 13:06:14 Social History None recorded. Functional Status None recorded. Mental Status None recorded. Family History Relationship Description Onset Age of this Age Resolved Age Notes LastModified by Organization Details LastModified Time Mother Vertigo 35 86 [email or web address] Not available 12/19/2024 13:08:44 Sister Autoimmune disease 56 69 [email or web address] Not available 2024 13:08:44 Medical History Condition Response Allergies/Hayfever Y Heart Problems Y Anemia Y Depression Y COPD Y Gynecological HistoryNo gynecological history recorded. Obstetrics History GPAL:G 0 P 0 0 0 0 Past Encounters Encounter ID Performer Location Encounter Start Date Encounter Closed Date Diagnosis/Indication Diagnosis SNOMED-CT Code Diagnosis ICD10 Code Diagnosis IMO Codes Diagnosis Note [id number] NITZA MORTENSEN PA-C [facility] [address] [id number] 12/19/2024 12:29:53 12/19/2024 13:28:37 Anterior epistaxis 416797319 R04.0 Anticoagulant therapy 18 1070898 Z79.01 Nasal congestion 9628977 0 R09.81 Health Concerns Section Related Observation LastModified by Organization Detai ls LastModified Time None Recorded Concern Status LastModified by Organization Details LastModified Time None Recorded Advance Directives Directive None Recorded Payers Insurance Date Sequence Insurance Name Policy Number Policy Rasmussen Covered Member ID Rasmussen Member ID Guarantor Name 12/15/2024 1 [facility] [place] [id number] 1 Mitzy Kessler [id number] Mitzy Kessler Notes Date Note Type Note Provider Name and Address Organization Details Recorded Time 12/19/2024 text/html ROS as noted in the HPI 69 year old female presents for evaluation of the nose. Reports nasal congestion ongoing for years, on the left side. She feels like she cannot blow enough mucus out of the nose. She then tries to pick the nose. Sometimes crusty blood comes out. Sometimes there is bright red blood that resolves in a few minutes. Has tried saline spray, saline gel, and Navage without improvement. She has a history of severe epistaxis June 2014 requiring nasal packing and cautery. Drinks a lot of seltzer but not much plain water. Takes clopidogrel for history of heart attack with cardiac stent. Wears nasal cannula 15/06. Not humidified; she worries about infection. Nitza blanchard [place] - [facility] 12/19/2024 13:33:55 OBGyn Episode No OBEpisode recorded.
--- OUTSIDE RECORDS SUMMARY | 2025-11-13 17:24 | XMS_ITS | Clinical Summary ---
Author Organization [facility] Address [address] [place] [address] Phone Care Team Providers Care Helper/Driver Name Role Phone Misti Tariq MD Primary Care Provid er Allergies No known active allergies Medications atorvastatin (LIPITOR) 80 mg tablet Take 1 tablet (80 mg total) by mouth 1 (one) time each day. Active buPROPion SR (WELLBUTRIN SR) 100 mg 12 hr tablet Take 1 tablet (100 mg total) by mouth 2 (two) times a day. Active clopidogreL (PLAVIX) 75 mg tablet Take 1 tablet (75 mg total) by mouth 1 (one) time each day. Active hydrocortisone 2.5 % cream APPLY EXTERNALLY TWO TIMES A DAY NEEDED 5 Active levalbuterol (XOPENEX HFA) 45 mcg/actuation inhaler USE 2 INHALATIONS ORALLY EVERY 6 HOURS NEEDED FOR SHORTNESS OF BREATH OR WHEEZING 5 Active metFORMIN XR (GLUCOPHAGE-XR) 500 mg 24 hr tablet Take 2 tablets (1,000 mg total) by mouth at bedtime. 5 Active metoprolol tartrate (LOPRESSOR) 50 mg tablet Take 1 tablet (50 mg total) by mouth 2 (two) times a day. Active montelukast (SINGULAIR) 10 mg tablet Take 1 tablet (10 mg total) by mouth 1 (one) time each day. Active roflumilast 250 mcg tablet Take 1 tablet by mouth 1 (one) time each day. 5 Active aspirin 81 mg tablet Take 81 mg by mouth. 4 Active Anoro Ellipta 62.5-25 mcg/actuation inhaler 1 puff 1 (one) time each day. 5 Active ferrous sulfate 325 mg (65 mg elemental iron) tablet Take by mouth. Activ e acetaminophen-c odeine (TYLENOL #3) 300-30 mg per tablet TAKE 1 TABLET EVERY 4 TO 6 HOURS NEEDED FOR PAIN 5 Active cholecalciferol (VITAMIN D-3) 50 mcg (2,000 unit) tablet Take 1 tablet (2,000 Units total) by mouth 1 (one) time each day. Active coQ10, ubiquinol, 200 mg capsule Take by mouth. Acti ve polyethylene glycol (Golytely) 236-22.74-6.74 -5.86 gram solution Take 4L by mouth once for one dose. May substitue any PEG. Starting at 2PM the day before your procedure drink 1 8oz glasses at your own pace until you complete half of the gallon. Finish 2nd half of the gallon at 8PM. 4000 mL 5 Active bisacodyL (DULCOLAX) 5 mg EC tablet Take 2 tablets by mouth right before beginning bowel prep. See instructions provided by the office 2 tablet 5 Active diphenhydrAMINE -acetaminophen (TYLENOL PM) 25-500 mg per tablet Take 1 tablet by mouth at bedtime as needed for sleep. Active sod picosulf/mag ox/citric ac (CLENPIQ ORAL) Take by mouth. Active Oxygen Therapy (O2) gas Inhale continuously. via nasal canula Active Active Problems Problem Noted Date Diagnosed Date Pulmonary nodule 03/25/2018 Chronic obstructive pulmonary disease (COPD) Coronary artery disease 03/17/2018 Overview (10/18/2025): S/p NSTEMI, stent Diabetes mellitus type 2, uncomplicated 03/17/20 18 Hyperlipidemia 03/17/2018 Hypertension 03/17/2018 Restrictive lung disease 03/17/2018 Overview (10/18/2025): multifactorial Supplemental oxygen dependent 03/17/2018 Encounters Date Type Department Care Team Description 10/24/2025 11:00 AM EST Consult Gastroenterology - [address] [place] [address] Romel, Delma, NEUROLOGICAL SURGEON Rectal bleeding (Primary Dx); Iron deficiency anemia, unspecified iron deficiency anemia type 10/05/2025 Telephone Gastroenterology - [address] [facility] [address] [place] [phone] Mike Russell MD from Last 3 Months Surgical History Surgery Date Site/Laterality Comments OTHER SURGICAL HISTORY PROCEDURE: ---- OTHER ----; COMMENT: Splenic embolization following colonoscopy related splenic rupture CARDIAC CATHETERIZATION PROCEDURE: HISTORICAL CARDIAC CATH; COMMENT: stent placed Medical History Medical History Date Comments Diabetes mellitus type 2, uncomplicated ([facility] V24, [facility] V28) 03/17/2018 DX:Diabetes mellitus type 2, uncomplicated ([facility]) Chronic obstructive pulmonar y disease (COPD) ([facility] V24, [facility] V28) 03/17/2018 DX:Chronic obstructi ve pulmonary disease (COPD) ([facility]) History of tobacco use 03/17/2018 DX:Histor y of tobacco use Coronary artery disease 03/17/2018 DX:Coron nyla artery disease; COMMENT: S/p NSTEMI Morbid obesity with BMI of 4 5.0-49.9, adult ([facility] V24, [facility] V28) 03/17/2018 DX:Morbid obesity wit h BMI of 45.0-49.9, adult ([facility]) Hyperlipidemia 03/17/2018 DX:Hyperlipidemi a Supplemental oxygen dependent 03/17/2018 DX :Supplemental oxygen dependent Restrictive lung disease 03/17/2018 DX:Rest rictive lung disease History of acute respiratory distress syndrome (ARDS) 03/17/2018 DX:History of acute respirat ory distress syndrome (ARDS) History of pulmonary embolus (PE) 03/17/2018 DX:History of pulmonary embolus (PE) History of traumatic rupture of spleen 03/17/2018 DX:History of traumatic rupture of spleen; COMMENT: Colonoscopy associated rupture, embolization tx History of hepatitis A 03/17/2018 DX:Histor y of hepatitis A History of deep venous thrombosis 03/17/2018 DX:History of deep venous thrombosis; COMMENT: Right upper extremity Hypertension 03/17/2018 DX:Hypertension Social History Tobacco Use Types Packs/Day Years Used Date Smoking Tobacco: Former Smokeless Tobacco: Never Comments Unknown Sex and Gender Information Value Date Recorded Sex Assigned at Female 11/11/2025 11:22 AM EST Legal Sex Female 9:49 PM EST Gender Identity Female 11/11/2025 11:22 AM EST Sexual Orientation Not on file Last Filed Vital Signs Vital Sign Reading Time Taken Comments Blood Pressure 130/75 10/24/2025 10:54 AM EST Pulse 68 10/24/2025 10:54 AM EST Temperature - - Respiratory Rate - - Oxygen Saturation 98% 10/24/2025 10:54 AM EST Inhaled Oxygen Concentration - - Weight 89.4 kg (197 lb) 11/08/2025 12:00 PM EST Height 152.4 cm (5') 11/08/2025 12:00 PM EST Body Mass Index 38.47 11/08/2025 12:00 PM EST Plan of Treatment Upcoming Encounters Date Type Department Care Team (Late st Contact Info) Description 11/15/2025 1:00 PM EST Hospital Encounter [facility] [address] [place] [id number] Izzy De Los Santos MD [address] [address] Health Maintenance Due Date Last Done Comments Breast Cancer Screening 1955 Colorectal Cancer Screening: Colonoscopy 1955 Diabetes: Annual GFR (Glomerular Filtration Rate) 1953 Diabetes: Annual Foot Exam 1963 Diabetes: Annual Retina Eye Exam 1965 Zoster Vaccines (1 of 2) 01/05/2024 11/10/2023, 02/2023 Depression Screening 11/23/2024 Cholesterol Screening (Lipid Panel) 10/05/2025 Diabetes: Annual Urine Albumin-Creatinine Ratio (uACR) 10/05/2025 Diabetes: Blood Sugar Control Test (HGBA1C) 10/05/2025 Falls Risk Assessment 10/05/2025 Hepatitis C Screening 10/05/2025 Hypertension/CHF/CAD Annual BMP Blood Test 10/05/2025 Osteoporosis Screening (Bone Density Screening) 10/05/2025 Social Influencers of Health Screening 10/05/2025 COVID-19 Vaccine ( season) 2026 09/17/2025, 07/29/2024, 09/17/2023, Additional history exists DTaP,Tdap,and Td Vaccines (2 - Td or Tdap) 11/06/2026 11/06/2016 Pneumococcal Vaccine: 50+ Years Completed 02/21/2022, 06/08/2019, 05/03/2016, Additional history exists RSV Immunization Adult Patients Completed 09/01/2023 Varicella Vaccines Aged Out 11/10/2023, 09/26/2023 No longer eligible based on patient's age to complete this topic Influenza Vaccine Completed 07/08/2025, , 08/02/2023, Additional history exists HIB Vaccines Aged Out No longer eligi ble based on patient's age to complete this topic HPV Vaccines Aged Out No longer eligi ble based on patient's age to complete this topic Hepatitis A Vaccines Aged Out No long er eligible based on patient's age to complete this topic Hepatitis B Vaccines Aged Out No long er eligible based on patient's age to complete this topic IPV Vaccines Aged Out No longer eligi ble based on patient's age to complete this topic MMR Vaccines Aged Out No longer eligi ble based on patient's age to complete this topic Meningococcal ACWY Vaccine Aged Out N o longer eligible based on patient's age to complete this topic Meningococcal B Vaccine Aged Out No l onger eligible based on patient's age to complete this topic RSV Immunization Patients Under 20 months Aged Out No longer eligible based on patient's age to complete this topic Goals Goal Patient Goal Type Associated Problems Recent Progress Patient-Stated? Author Autogenera va Goal Care Plan Autogenerated Problem No Chhaya Douglas Additional Health Concerns Active Problems Noted Date Diagnosed Date Autogenerated Problem 10/24/2025 Insurance [facility] Care Teams Helper/Driver Relationship Specialty Start Date End Date Misti Tariq MD [address] [place] [address] PCP - General Endocrinology 10/24/25
== END 2025-11-13 14:30 | disposition home or self-care (01) ==
LOC: HO.HPS 13:53
PROVIDERS: PCP Internal Medicine Endocrinology, Diabetes & Metabolism; Visit Provider Hospitalist
DX: J44.1 Chronic obstructive pulmonary disease with (acute) exacerbation (principal); J96.11 Chronic respiratory failure with hypoxia; R91.8 Other nonspecific abnormal finding of lung field; Z01.811 Encounter for preprocedural respiratory examination
CPT/HCPCS: 99214